=== PATIENT | female | born 1980 | race Caucasian/White ===

== ENCOUNTER 2022-06-15 14:09 | Outpatient (CLI) | payer OTHER, SELFPAY ==
--- NOTE | ~2022-06-15 | US_ITS ---
EXAMINATION: US pelvic complete w TV DATE: 06/15/2022 15:32 INDICATION: Pelvic pain TECHNIQUE: Multiple transabdominal and endovaginal sonographic images of the pelvis were obtained. COMPARISON: None. FINDINGS: The uterus measures 8.2 x 3.7 x 4.4 cm. The endometrial complex measures 3 mm. The right ov tone measures 1.6 x 0.9 x 0.9 cm. The left ovary measures 1.7 x 1.2 x 1 cm. There is normal vascular f low in the ovaries. There is no free fluid in the pelvis. IMPRESSION: 1. No sonographic correlate for the patient's symptoms. Reviewed, dictated and finalized at location F.
== END 2022-06-15 14:10 | disposition home or self-care (01) ==
PROVIDERS: PCP Internal Medicine; Visit Provider Nurse Practitioner
DX: R10.2 Pelvic and perineal pain (principal)
CPT/HCPCS: 76830; 76856

== ENCOUNTER 2023-11-25 10:59 | Outpatient (CLI) | payer SELFPAY ==
--- NOTE | ~2023-11-25 | MMUS_ITS ---
EXAMINATION: MM diagnostic sade BI w wilson, US breast RT limited HISTORY: Palpable right breast lump TECHNIQUE: Additional 3-D tomosynthesis images of the bilateral breasts were performed and synthetic 2-D images were generated. CAD analysis was submitted and interpreted. High resolution limited right breast ultrasound was performed. COMPARISON: None available BREAST PARENCHYMAL COMPOSITION:Dense: The breasts are heterogeneously dense, which may obscure small masses. FINDINGS: MAMMOGRAPHIC FINDINGS: There is a suspected partially obscured 9 mm oval mass at the upper, outer right breast. No other mas s lesion or distortion seen in either breast. No suspicious microcalcifications seen. ULTRASOUND: There is a 6 mm cyst, anechoic, wider than tall, with circumscribed borders, at the right breast 10:0 0 position, 3.5 cm from the nipple. There is an additional 5 mm cyst at the 10:[address], 4.5 cm from the nipple. No other sonographic lesions seen in the region scanned. IMPRESSION: No evidence for malignancy. 2 subcentimeter cysts at the right breast 10:00 position, as detailed above, benign. Recommend routine screening mammography in one year. BI-RADS Category 2: Benign finding(s). Reviewed, dictated and finalized at location M. IMPRESSION: No evidence for malignancy. 2 subcentimeter cysts at the right breast 10:00 position, as detailed above, be nign. Recommend routine screening mammography in one year. BI-RADS Category 2: Benign finding(s).
== END 2023-11-25 11:00 | disposition home or self-care (01) ==
PROVIDERS: PCP Nurse Practitioner; Visit Provider Nurse Practitioner
DX: N63.11 Unspecified lump in the right breast, upper outer quadrant (principal)
CPT/HCPCS: 76642; 77062; 77066; G0279